=== PATIENT | male | born 1970 | race Caucasian/White ===

== ENCOUNTER 2020-08-12 22:36 | Emergency (ER) | payer BC ==
[~2020-08-12] VITALS: Ht 167.6 cm; Wt 122.7 kg
[2020-08-12 22:46] VITALS: BP 142/70
[2020-08-12] MEDS ORDERED: HYDROcodone/acetaminophen 10/325mg tab PO STA (22:57)
[2020-08-13] MEDS ORDERED: ketorolac trometh. 30mg/ml inj. IM ONE (00:10)
[2020-08-13] MEDS ORDERED: TETanus/Pertussis (Acell)/Diphther VAC/PF (Tdap-Adult) 0.5ml syringe IMVAC ONE (00:15)
[2020-08-13] MEDS ORDERED: LIDOcaine/epinephrine/tetracaine TOPICAL sol 3 ML syringe TOP ONE (00:25)
[2020-08-13] MEDS ORDERED: silver sulfadiazine cream 400gm jar TP ONE (00:25)
[2020-08-13] MEDS ORDERED: silver sulfadiazine cream 400gm jar TP SCH (00:25)
[2020-08-13] MEDS ORDERED: HYDR-3965 PO (00:33)
== END 2020-08-13 01:59 | disposition home or self-care (01) ==
LOC: ER 22:37
DX: S42.201A Unspecified fracture of upper end of right humerus, initial encounter for closed fracture (principal); S50.811A Abrasion of right forearm, initial encounter; S50.11XA Contusion of right forearm, initial encounter; M25.511 Pain in right shoulder; Z20.3 Contact with and (suspected) exposure to rabies; X58.XXXA Exposure to other specified factors, initial encounter; Y93.89 Activity, other specified; Y92.89 Other specified places as the place of occurrence of the external cause; Y99.8 Other external cause status
CPT/HCPCS: 73030; 73060; 73080; 90471; 90715; 96372; 99284; J1885